=== PATIENT | male | born 1980 | race Asian ===

== ENCOUNTER 2024-02-18 13:21 | Outpatient (AMB) | payer OTHER, SELFPAY ==
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
[2024-02-18 13:51] VITALS: BMI 23.5
== END 2024-02-18 14:29 | disposition home or self-care (01) ==
PROVIDERS: Visit Provider Physician Assistant
DX: S42.031A Displaced fracture of lateral end of right clavicle, initial encounter for closed fracture (principal)
CPT/HCPCS: 99203; G2211

== ENCOUNTER 2024-02-18 16:34 | Outpatient (REF) | payer OTHER, SELFPAY ==
--- NOTE | ~2024-02-18 | XR_ITS ---
EXAMINATION: XR CLAVICLE RIGHT 2 VIEWS CLINICAL INFORMATION: Fracture of unspecified part of unspecified clavicle, initial encounter for closed fracture S42.009A. COMPARISON: None available TECHNIQUE: PA and tangential views of the right clavicle, 2 images. FINDINGS: Mildly comminuted mid clavicular fracture with mild inferior displacement and angulation of the distal fracture fragment. Bony callus formation suggests nonacute nature of the fracture. Acromioclavicular joint is intact. The visualized shoulder appears anatomic alignment. The visualized scapula, edema and ribs are intact. The visualized right lung is clear. XR/XR clavicle RT IMPRESSION: Mildly comminuted mid clavicular fracture as described above. Electronically signed by: Robyn Hunter DO 04/02/2024 11:15 AM BRIDGER
== END 2024-02-18 16:35 | disposition home or self-care (01) ==
LOC: HO.HOSX 16:34
PROVIDERS: Visit Provider Physician Assistant
DX: S42.009A Fracture of unspecified part of unspecified clavicle, initial encounter for closed fracture (principal)
CPT/HCPCS: 73000

== ENCOUNTER 2024-03-15 10:18 | Outpatient (REF) | payer OTHER, SELFPAY ==
--- NOTE | ~2024-03-15 | XR_ITS ---
EXAMINATION: XR CLAVICLE, RIGHT CLINICAL INFORMATION: S42.009A - Fracture of unspecified part of unspecified clavicle, initial... COMPARISON: X-ray 02/18/2024 TECHNIQUE: Two views of the right clavicle. FINDINGS: Mildly comminuted mildly displaced fracture at the junction of middle and distal one 3rd portion of the clavicle. Slight apex cranial angulation and one half shafts width caudal displacement of the distal fragment. There is minimal if any osseous bridging unchanged compared to prior. The remaining bones joints soft tissues are unremarkable. XR/XR clavicle RT IMPRESSION: Unchanged clavicle fracture Electronically signed by: Matheus Brandt MD 03/21/2024 07:20 AM BRIDGER
== END 2024-03-15 10:19 | disposition home or self-care (01) ==
LOC: HO.HOSX 10:18
PROVIDERS: Visit Provider Physician Assistant
DX: S42.009A Fracture of unspecified part of unspecified clavicle, initial encounter for closed fracture (principal)
CPT/HCPCS: 73000

== ENCOUNTER 2024-03-15 14:32 | Outpatient (AMB) | payer OTHER, SELFPAY ==
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
[2024-03-15 15:01] VITALS: BMI 24.2
== END 2024-03-15 15:40 | disposition home or self-care (01) ==
PROVIDERS: Visit Provider Physician Assistant
DX: S42.031D Displaced fracture of lateral end of right clavicle, subsequent encounter for fracture with routine healing (principal)
CPT/HCPCS: 99213

== ENCOUNTER 2024-04-22 10:58 | Outpatient (REF) | payer OTHER, SELFPAY | END 2024-04-22 10:59 | disposition home or self-care (01) | LOC: HO.HOSX 10:58 | PROVIDERS: Visit Provider Physician Assistant | DX: Z13.89 Encounter for screening for other disorder (principal) ==